=== PATIENT | female | born 1960 | race Caucasian/White ===

== ENCOUNTER 2019-10-05 20:32 | Emergency (ER) | payer MEDICARE, MEDICAID ==
[~2019-10-05] VITALS: Ht 170.2 cm; Wt 142.3 kg
[2019-10-05 20:41] VITALS: BP 129/92; TEMP 98.9
[2019-10-05] MEDS ORDERED: ELIQUIS 5MG PO (20:45)
[2019-10-05] MEDS ORDERED: LIPITOR 10MG10 MG PO (20:46)
[2019-10-05] MEDS ORDERED: DESYREL 50MG50 MG PO (20:46)
[2019-10-05] MEDS ORDERED: GLUCOPHAGE500 MG/TAB PO (20:46)
[2019-10-05 21:43] LABS: BASO # 0.1 (0.0-0.2); BASO % 0.6 % (0.0-2.0); EOS # 0.3 (0.0-0.7); EOS % 2.7 % (0-4.0); GRAN # 7.9 (1.4-6.5); GRAN % 68.2 % (42.2-75.2); HEMATOCRIT 45.5 % (37.0-47.0); HEMOGLOBIN 15.1 g/dl (12.5-16.0); LYMPH # 2.5 (1.2-3.4); LYMPH % 21.6 % (20.0-51.0); MEAN CELL VOLUME 87 fl (80.0-100.0); MEAN CORPUSCULAR HEMOGLOBIN 29 pg (27.0-31.0); MEAN CORPUSCULAR HGB CONC 33 g/dl (33.0-37.0); MEAN PLATELET VOLUME 10.3 fl (7.4-10.4); MONO # 0.8 (0.1-0.6); MONO % 6.5 % (1.7-9.3); PLATELET COUNT 273 K/mm3 (130-400); RED BLOOD COUNT 5.22 M/mm3 (4.10-5.30)
[2019-10-05 21:48] LABS: INR 1.3 (0.8-3.0); PROTHROMBIN TIME 15.6 SECONDS (9.7-12.8)
[2019-10-05 22:04] LABS: CALCIUM 9.8 mg/dL (8.4-10.2); CREATININE, serum 0.88 (0.52-1.25)
[2019-10-05 22:13] LABS: POTASSIUM 2.9 mmol/L (3.4-5.0)
[2019-10-05] MEDS ORDERED: CEPHALEXIN500 M1 PO (23:11)
[2019-10-05] MEDS ORDERED: K-DUR20 MEQ PO (23:11)
[2019-10-05] MEDS ORDERED: NORCO 325 MG-51 TAB PO (23:11)
[2019-10-05 23:46] VITALS: PULSE 87
== END 2019-10-05 23:46 | disposition home or self-care (01) ==
LOC: COL.ER 20:32
PROVIDERS: Emergency Medicine
DX: S93.115A Dislocation of interphalangeal joint of left lesser toe(s), initial encounter (principal); S92.512A Displaced fracture of proximal phalanx of left lesser toe(s), initial encounter for closed fracture; S91.115A Laceration without foreign body of left lesser toe(s) without damage to nail, initial encounter; S00.83XA Contusion of other part of head, initial encounter; I10 Essential (primary) hypertension; E11.9 Type 2 diabetes mellitus without complications; I48.91 Unspecified atrial fibrillation; F17.210 Nicotine dependence, cigarettes, uncomplicated; E87.6 Hypokalemia; Z23 Encounter for immunization; Z79.01 Long term (current) use of anticoagulants; Z79.84 Long term (current) use of oral hypoglycemic drugs; W19.XXXA Unspecified fall, initial encounter; Y92.009 Unspecified place in unspecified non-institutional (private) residence as the place of occurrence of the external cause
CPT/HCPCS: J0690; J2405; J3010

== ENCOUNTER 2020-01-26 23:38 | Emergency (ER) | payer MEDICARE, MEDICAID ==
[~2020-01-26] VITALS: Ht 170.2 cm; Wt 136.4 kg
[~2020-01-26 23:38] MED LIST: CEPHALEXIN500 M1 PO; DESYREL 50MG50 MG PO; ELIQUIS 5MG PO; GLUCOPHAGE500 MG/TAB PO; K-DUR20 MEQ PO; LIPITOR 10MG10 MG PO; NORCO 325 MG-51 TAB PO
[2020-01-26 23:40] VITALS: TEMP 98.3
[2020-01-27 01:00] VITALS: BP 119/79; PULSE 93
== END 2020-01-27 01:00 | disposition home or self-care (01) ==
LOC: COL.ER 23:38
DX: S81.831A Puncture wound without foreign body, right lower leg, initial encounter (principal); I83.891 Varicose veins of right lower extremity with other complications; I48.91 Unspecified atrial fibrillation; Z79.01 Long term (current) use of anticoagulants; X58.XXXA Exposure to other specified factors, initial encounter

== ENCOUNTER 2020-09-19 20:13 | Emergency (ER) | payer MEDICARE, MEDICAID ==
[~2020-09-19] VITALS: Ht 170.2 cm; Wt 133.2 kg
[2020-09-19 20:45] VITALS: TEMP 97.9
[2020-09-19] MEDS ORDERED: CALCITRIOL PO (21:07)
[2020-09-19] MEDS ORDERED: ESTRACE 1MG1 MG/TAB PO (21:08)
[2020-09-19] MEDS ORDERED: EFFEXOR 75M75 MG/TAB PO (21:08)
[2020-09-19] MEDS ORDERED: COZAAR 50MG50 MG/TAB PO (21:08)
[2020-09-19] MEDS ORDERED: FLEXERIL 1010 MG/TAB PO (21:09)
[2020-09-19] MEDS ORDERED: PRILOSEC 20MG20 MG PO (21:09)
[2020-09-19] MEDS ORDERED: CARDIZEM CD 24240 MG PO (21:09)
[2020-09-19] MEDS ORDERED: LASIX 80MG TABL80 MG PO (21:09)
[2020-09-19] MEDS ORDERED: XANAX 0.5MG0.5 MG PO (21:09)
[2020-09-19 22:30] VITALS: BP 130/70; PULSE 91
== END 2020-09-19 22:57 | disposition home or self-care (01) ==
LOC: COL.ER 20:13
DX: M54.6 Pain in thoracic spine (principal); M54.2 Cervicalgia; R51.9 Headache, unspecified; Z88.0 Allergy status to penicillin; Z88.1 Allergy status to other antibiotic agents; Z88.6 Allergy status to analgesic agent; Z79.01 Long term (current) use of anticoagulants; Z79.84 Long term (current) use of oral hypoglycemic drugs; W01.10XA Fall on same level from slipping, tripping and stumbling with subsequent striking against unspecified object, initial encounter
CPT/HCPCS: J0595; J1100; J2765; J7030

== ENCOUNTER → 2021-05-21 | Outpatient (CLI) | payer MEDICARE, MEDICAID ==
[~2021-05-21] MED LIST changes: +CALCITRIOL PO; +CARDIZEM CD 24240 MG PO; +COZAAR 50MG50 MG/TAB PO; +EFFEXOR 75M75 MG/TAB PO; +ESTRACE 1MG1 MG/TAB PO; +FLEXERIL 1010 MG/TAB PO; +LASIX 80MG TABL80 MG PO; +PRILOSEC 20MG20 MG PO; +XANAX 0.5MG0.5 MG PO
[2021-05-21 17:32] LABS: ALBUMIN 3.9 gm/dL (3.4-4.8); BILIRUBIN,TOTAL 0.3 mg/dL (0.2-1.2); CALCIUM 10.4 mg/dL (8.4-10.2); CREATININE, serum 0.88 mg/dL (0.57-1.11); POTASSIUM 3.9 mmol/L (3.5-4.5); TOTAL PROTEIN 7.5 gm/dL (6.2-8.1)
[2021-05-21 17:40] LABS: IRON,SERUM 32 ug/dL (35-150)
[2021-05-21 17:49] LABS: TOTAL IRON BINDING CAPACITY 324 ug/dL (265-497)
[2021-05-21 23:54] LABS: T3 FREE (TRI-IODOTHYRONINE) 2.9 pg/mL (1.7-3.7)
== END ==
LOC: COL.LAB 15:40
PROVIDERS: Internal Medicine
DX: I10 Essential (primary) hypertension (principal); K90.9 Intestinal malabsorption, unspecified; E11.9 Type 2 diabetes mellitus without complications; R79.9 Abnormal finding of blood chemistry, unspecified

== ENCOUNTER → 2022-03-19 | Day surgery (SDC) | payer MEDICARE, MEDICAID ==
[~2022-03-19] VITALS: Ht 170.2 cm; Wt 147.4 kg
[~2022-03-19] MED LIST changes: +BREO IH; +NEURONTIN300 MG/CAP PO; +WELLBUTRIN XL150 MG PO
[2022-03-19 10:53] VITALS: BP 145/89; PULSE 86; TEMP 97.3
[2022-03-19 15:00] VITALS: BP 132/65; PULSE 84; TEMP 97.1
[2022-03-19 15:15] VITALS: BP 103/78; PULSE 81
[2022-03-19 15:30] VITALS: BP 145/85; PULSE 77
--- NOTE | 2022-03-19 16:05 | NUR ---
1500: Patient brought back into [facility] from endo procedure. Report received from JIGAR Arana. Patient vitally stable on room air. Denies pain or nausea. Requesting vanilla pudding and sprite. Call light left within reach. 1510: MD in to see patient. 1515: Patient tolerating food and drink well. Denies pain or nausea. Vital signs stable on room air. 1530: Patient meets discharge criteria. IV removed without complications. Went through discharge instructions with patient. Questions answered. 1545: Patient got dressed and escorted to the patient entrance via wheelchair. Patient using [facility] bus services.
[2022-03-19 17:35] VITALS: BP 118/87; PULSE 84
== END ==
LOC: SDCO 02-26 07:00
DX: Z12.11 Encounter for screening for malignant neoplasm of colon (principal); D12.0 Benign neoplasm of cecum; K63.5 Polyp of colon; Z86.010 Personal history of colon polyps; I48.91 Unspecified atrial fibrillation
CPT/HCPCS: J2704; J7030

== ENCOUNTER 2022-05-16 20:43 | Emergency (ER) | payer MEDICARE, MEDICAID ==
[~2022-05-16] VITALS: Ht 165.1 cm; Wt 143.2 kg
[~2022-05-16 20:43] MED LIST changes: +ASPIRIN E.C. 8181 MG PO; +IMDUR 30MG30 MG/TAB PO; +LIPITOR 80MG80 MG PO; +LOPRESSOR 225 MG/TAB PO; +TOPROL XL 25MG25 MG PO
[2022-05-16 20:50] VITALS: TEMP 98.6
[2022-05-16 21:11] LABS: BASO # 0.1 K/mm3 (0.0-0.2); BASO % 0.9 % (0.0-2.0); EOS # 0.4 K/mm3 (0.0-0.7); EOS % 2.9 % (0.0-4.0); GRAN % 66.3 % (42.2-75.2); HEMATOCRIT 45.2 % (37.0-47.0); HEMOGLOBIN 14.9 g/dl (12.5-16.0); LYMPH % 22.2 % (20.0-51.0); MEAN CELL VOLUME 87 fl (80.0-100.0); MEAN CORPUSCULAR HEMOGLOBIN 29 pg (27-31); MEAN CORPUSCULAR HGB CONC 33 g/dl (33.0-37.0); MEAN PLATELET VOLUME 10.3 fl (7.4-10.4); MONO % 7.3 % (1.7-9.3); PLATELET COUNT 341 K/mm3 (130-400); RED BLOOD COUNT 5.19 M/mm3 (4.10-5.30); REDCELL DISTRIBUTION WIDTH-CV 13.6 % (11.5-14.5)
[2022-05-16 21:13] LABS: INR 1.1 (0.8-3.0); PROTHROMBIN TIME 12.3 SECONDS (9.7-12.8)
[2022-05-16 21:16] LABS: PARTIAL THROMBOPLASTIN TIME 37.6 SECONDS (26.0-37.0)
[2022-05-16 21:26] LABS: ALBUMIN 3.7 gm/dL (3.4-4.8); BILIRUBIN,TOTAL 0.4 mg/dL (0.2-1.2); CALCIUM 9.8 mg/dL (8.4-10.2); CREATININE, serum 1.03 mg/dL (0.57-1.11); POTASSIUM 4.3 mmol/L (3.5-4.5); TOTAL PROTEIN 7.2 gm/dL (6.2-8.1)
[2022-05-16 21:33] LABS: TROPONIN-I 0.035 ng/mL (0.00-0.033)
[2022-05-17 00:40] VITALS: BP 150/70; PULSE 76
== END 2022-05-17 00:40 | disposition home or self-care (01) ==
LOC: COL.ER 20:43
PROVIDERS: Emergency Medicine
DX: I11.0 Hypertensive heart disease with heart failure (principal); I50.9 Heart failure, unspecified; I48.91 Unspecified atrial fibrillation; F17.210 Nicotine dependence, cigarettes, uncomplicated; Z28.310 Unvaccinated for COVID-19; Z79.01 Long term (current) use of anticoagulants; Z79.82 Long term (current) use of aspirin; Z79.899 Other long term (current) drug therapy